=== PATIENT | male | born 1970 | race Two or more races ===

== ENCOUNTER 2017-03-13 10:48 | Emergency (ER) | payer BC, OTHER ==
[2017-03-13] MEDS ORDERED: NORMAL SALINE 1000 ML 1,000 ML IV ONE (11:03)
--- NOTE | 2017-03-13 11:03 | ER Document Report ---
ED General - General Mode of Arrival: Ambulatory Information source: Patient <KY BUTTS - Last Filed: 03/13/17 12:49> <ARLINE ALFONSO - Last Filed: 03/15/17 23:01> - General Stated Complaint: SHORTNESS OF BREATH Time Seen by Provider: 03/13/17 10:55 Notes: Patient is a 46 year old male with a history of Hypertension reports the emergency department via EMS complaining of shortness of breath and chest tightness onset 3 days ago worsening this morning. Patient states that he was recently diagnosed last week with walking pneumonia and was prescribed Prednisone, Albuterol and Augmentin. Patient states that his symptoms were getting better over the week but worsened 3 days ago. Patient states that around 10 AM this morning he felt like he was going to pass out from shortness of breath. Patient states that he took 1 albuterol treatment this morning. Patient also complains of vomiting x1 (2 days ago), neck pain (chronic), productive cough with a small amount of sputum and light headedness. Patient denies diarrhea. At bedside patient states that he feels fine although he is having a little bit of chest tightness. Patient was also 100% on room air. Patient states that he smoked 1 cigarette this morning before work. EMS gave the patient 2 Albuterol treatments prior to arrival and was 79% on room air. Patient states he took his last dose of Augmentin this morning. (BECKIEKY BELTRAN) - Related Data Allergies/Adverse Reactions: No Known Drug Allergies Allergy (Verified 04/06/13 19:04) Past Medical History - General Information source: Patient - Social History Smoking Status: Current Some Day Smoker Frequency of alcohol use: Social Family History: Other - Father [place] at 73 years old - Past Medical History Cardiac Medical History: Reports: Hx Hypertension - Immunizations Hx Diphtheria, Pertussis, Tetanus Vaccination: No <KY BUTTS - Last Filed: 03/13/17 12:49> Review of Systems - Review of Systems Constitutional: No symptoms reported EENT: No symptoms reported Cardiovascular: See HPI, Chest pain, Lightheaded Respiratory: See HPI, Short of breath Gastrointestinal: See HPI, Vomiting Genitourinary: No symptoms reported Male Genitourinary: No symptoms reported Musculoskeletal: See HPI, Neck pain Skin: No symptoms reported Hematologic/Lymphatic: No symptoms reported Neurological/Psychological: No symptoms reported -: Yes All other systems reviewed and negative <KY BUTTS - Last Filed: 03/13/17 12:49> Physical Exam - General General appearance: Appears well, Alert In distress: None - HEENT Head: Normocephalic, Atraumatic - Respiratory Respiratory status: No respiratory distress Chest status: Nontender Breath sounds: Normal - Cardiovascular Rhythm: Tachycardia Heart sounds: Normal auscultation Murmur: No Friction rub: No Gallop: None auscultated - Abdominal Inspection: Normal Distension: No distension Bowel sounds: Normal Tenderness: Nontender - Back Back: Normal - Extremities General upper extremity: Normal ROM General lower extremity: Normal ROM - Neurological Neuro grossly intact: Yes Cognition: Normal Orientation: AAOx4 [place] Coma Scale Eye Opening: Spontaneous Eder Coma Scale Verbal: Oriented [place] Coma Scale Motor: Obeys Commands [place] Coma Scale Total: 15 Speech: Normal - Psychological Associated symptoms: Normal affect, Normal mood - Skin Skin Temperature: Warm Skin Moisture: Dry Skin Color: Normal <KY BUTTS - Last Filed: 03/13/17 12:49> - Vital signs Vitals: Temp Resp BP Pulse Ox 98.4 F 23 H 192/127 H 100 03/13/17 10:58 03/13/17 10:58 03/13/17 10:58 03/13/17 10:58 Course - Laboratory Result Diagrams: 03/13/17 11:20 03/13/17 11:20 <KY BUTTS - Last Filed: 03/13/17 12:49> - Laboratory Result Diagrams: 03/13/17 11:20 03/13/17 11:20 - EKG Interpretation by Sc EKG shows normal: Sinus rhythm Rate: Tachycardia Rhythm: NSR <ARLINE ALFONSO Bob - Last Filed: 03/15/17 23:01> - Re-evaluation Re-evalutation: 03/13/17 12:43 Patient well-appearing in no acute distress in the emergency department during observation. With labs within normal limits not significant including no concerning findings on EKG or chest x-ray. Discussed findings with patient and need to use albuterol nebulizer he has at his house every 4 hours while awake for the next 2 days and then 4 hours as needed thereafter. Patient understands and agrees to plan and will follow up with primary care physician next to 3 days if symptoms are not improving or sooner in the emergency department if symptoms worsen. (ARLINE ALFONSO) - Vital Signs Vital signs: Temp Pulse Resp BP Pulse Ox 98.4 F 14 161/70 H 100 03/13/17 10:58 03/13/17 12:55 03/13/17 12:55 03/13/17 12:55 - Laboratory Laboratory results interpreted by me: 03/13/17 03/13/17 11:20 11:20 RBC 4.28 L ALT 79 H Discharge <KY BUTTS - Last Filed: 03/13/17 12:49> <ARLINE ALFONSO - Last Filed: 03/15/17 23:01> - Discharge Clinical Impression: Shortness of breath, Cough, Tobacco abuse, Tobacco abuse counseling Condition: Stable Disposition: HOME, SELF-CARE Additional Instructions: Follow up with primary care physician within the next 3 days if symptoms are not improving. Return to the emergency department for new or worsening symptoms. Prescriptions: Ondansetron HCl [Zofran] 4 mg PO ASDIR PRN #15 tablet PRN Reason: Forms: Smoking Cessation Education, Return to Work Referrals: LYN DEL ANGEL MD [Primary Care Provider] - Follow up as needed Scribe Attestation: 03/15/17 23:01 I personally performed the services described documentation, reviewed and edited the documentation which was dictated to describe my presence, and it accurately records my words and actions. (ARLINE ALFONSO) Scribe Documentation - Scribe Written by Scribe:: Cinthya Carrera, 03/13/2017 11:16 acting as scribe for :: Randal <KY BUTTS - Last Filed: 03/13/17 12:49>
[2017-03-13 11:41] LABS: ABSOLUTE EOSINOPHILS # (AUTO) 0.1 10^3/uL (0.0-0.6); ABSOLUTE LYMPHOCYTES (AUTO) 1.6 10^3/uL (0.5-4.7); ABSOLUTE MONOCYTES (AUTO) 0.8 10^3/uL (0.1-1.4); ABSOLUTE NEUT (AUTO) 4.9 10^3/uL (1.7-8.2); BASOPHILS % (AUTO) 0.5 % (0-2); EOSINOPHILS % (AUTO) 1.9 % (0-6); HEMATOCRIT 39.2 % (37.9-51.0); HEMOGLOBIN 13.5 g/dL (13.5-17.0); LYMPHOCYTES % (AUTO) 21.9 % (13-45); MEAN CORPUSCULAR HEMOGLOBIN 31.5 pg (27.0-33.4); MEAN CORPUSCULAR HGB CONC 34.4 g/dL (32.0-36.0); MEAN CORPUSCULAR VOLUME 92 fl (80-97); MONOCYTES % (AUTO) 10.6 % (3-13); PLATELET COUNT 289 10^3/uL (150-450); RED BLOOD COUNT 4.28 10^6/uL (4.35-5.55); RED CELL DISTRIBUTION WIDTH 13.5 % (11.5-14.0); SEGMENTED NEUTROPHILS % (AUTO) 65.1 % (42-78); TOTAL CELLS COUNTED % (AUTO) 100 %; WHITE BLOOD COUNT 7.5 10^3/uL (4.0-10.5)
--- NOTE | 2017-03-13 11:48 | RADIOLOGY REPORT (SQ) ---
EXAM DESCRIPTION: CHEST SINGLE VIEW COMPLETED DATE/TIME: 03/13/2017 11:37 am REASON FOR STUDY: cough, hx of PNA COMPARISON: 04/08/2013 EXAM PARAMETERS: NUMBER OF VIEWS: One view. TECHNIQUE: Single frontal radiographic view of the chest acquired. RADIATION DOSE: NA LIMITATIONS: Right/ left miss marked. FINDINGS: LUNGS AND PLEURA: No opacities, masses or pneumothorax. No pleural effusion. MEDIASTINUM AND HILAR STRUCTURES: No masses. Contour normal. HEART AND VASCULAR STRUCTURES: Heart normal in size. Normal vasculature. BONES: No acute findings. HARDWARE: None in the chest. OTHER: No other significant finding. IMPRESSION: NO ACUTE RADIOGRAPHIC FINDING IN THE CHEST. TECHNICAL DOCUMENTATION: JOB ID: [id number] [employer]- All Rights Reserved
[2017-03-13 11:57] LABS: ALANINE AMINOTRANSFERASE 79 U/L (21-72); ALBUMIN 4.6 g/dL (3.5-5.0); ALKALINE PHOSPHATASE 99 U/L (38-126); ANION GAP 13 (5-19); ASPARTATE AMINO TRANSFERASE 45 U/L (17-59); BILIRUBIN,DIRECT 0.3 mg/dL (0.0-0.4); BILIRUBIN,TOTAL 0.6 mg/dL (0.2-1.3); BLOOD UREA NITROGEN 10 mg/dL (7-20); CALCIUM 9.9 mg/dL (8.4-10.2); CARBON DIOXIDE 23 mmol/L (22-30); CHLORIDE 104 mmol/L (98-107); GLUCOSE 98 mg/dL (75-110); MAGNESIUM 1.9 mg/dL (1.6-2.3); POTASSIUM 3.6 mmol/L (3.6-5.0); SODIUM 140.1 mmol/L (137-145); TOTAL PROTEIN 7.2 g/dL (6.3-8.2)
[2017-03-13 12:08] LABS: NT PRO BNP 35 pg/mL (<125)
[2017-03-13 12:09] LABS: TROPONIN I < 0.012 ng/mL
--- NOTE | 2017-03-13 12:49 | EKG REPORT ---
SEVERITY:- OTHERWISE NORMAL ECG - SINUS TACHYCARDIA : Confirmed by: Flaco Canales MD 13-Mar-2017 12:48:32
[2017-03-13 13:01] VITALS: BP 161/70
== END 2017-03-13 13:00 | disposition home or self-care (01) ==
LOC: ER 10:48
DX: J18.9 Pneumonia, unspecified organism (principal); F17.200 Nicotine dependence, unspecified, uncomplicated; Z71.6 Tobacco abuse counseling; R06.02 Shortness of breath; R05 Cough; R07.89 Other chest pain; R42 Dizziness and giddiness; M54.2 Cervicalgia; G89.29 Other chronic pain; I10 Essential (primary) hypertension; F17.210 Nicotine dependence, cigarettes, uncomplicated; R11.10 Vomiting, unspecified; R00.0 Tachycardia, unspecified
CPT/HCPCS: 93005; 99285; 96360; 36415; 83735; 85025; 80053; 84484; 83880; 71045; 93010; J7030